=== PATIENT | female | born 1995 | race Caucasian/White ===

== ENCOUNTER 2020-03-20 11:14 | Outpatient (CLI) | payer OTHER ==
[2020-03-20 12:54] VITALS: BP 96/68; PULSE 87; RESP 16; TEMP 96.8
--- NOTE | 2020-03-25 06:21 | P.MSEPDOC ---
Presenting Problems - Arrival Data Date of Arrival on Unit: 03/20/20 Time of Arrival on Unit: 11:14 Mode of Transport: Ambulatory - Complaint OB-Reason for Admission/Chief Complaint: Possible Onset of Labor Medical History - Information : 2 Para: 1 Term: 1 : 0 Abortions: Spontaneous or Elective: 0 Number of Living Children: 1 - Gestational Age Gestational Age by ROSETTA (wks/days): 39 Weeks and 1 Days Review of Systems - Review of Systems Constitutional: No problems Breast: No problems ENT: No problems Cardiovascular: No problems Respiratory: No problems Gastrointestinal: No problems Genitourinary: No problems Musculoskeletal: No problems Neurological: No problems Skin: No problems Vital Signs - Temperature Temperature: 96.8 F Temperature Source: Tympanic - Pulse Right Brachial Pulse Rate: 87 Pulse Assessment Method: Automatic Cuff - Respirations Respiratory Rate: 16 Oxygen Delivery Method: Room Air - Blood Pressure Right Arm Blood Pressure: 96/68 Blood Pressure Mean: 77 Blood Pressure Source: Automatic Cuff Medical Screen Scoring (Pre) - Cervical Exam Dilation: 1-3 cm = 1 Effacement: More than 50% = 2 Membranes: Intact - Uterine Contractions Frequency: > or = 36 weeks =2 Duration: > 40 seconds = 2 Intensity: N/A - Maternal Vital Signs Maternal Temperature: N/A Maternal Blood Pressure: N/A Signs of Preeclampsia: N/A Maternal Respirations: N/A - Maternal Trauma Maternal Trauma: N/A - Assessment - Baby A Baseline FHR: 145 Heart Rate - NICHD Category: Category I (Normal) = 0 NST: Reactive Position: N/A Station: N/A - Total Score - Baby A Total Score - Baby A: 7 - Total Score - Baby B Total Score - Baby B: 7 - Total Score - Baby C Total Score - Baby C: 7 - Level of Risk - Baby A Level of Risk - Baby A: Medium (6-9) - Level of Risk - Baby B Level of Risk - Baby B: Medium (6-9) - Level of Risk - Baby C Level of Risk - Baby C: Medium (6-9) Physician Notification (Pre) - Physician Notified Physician Notified Date: 03/20/20 Physician Notified Time: 12:40 New Order Received: Yes - Notification Comment Comment: to wait another hour in triage and recheck cervix Medical Screen Scoring (Post) - Cervical Exam Dilation: 1-3 cm = 1 Effacement: More than 50% = 2 Membranes: Intact - Uterine Contractions Frequency: > or = 36 weeks =2 Duration: > 40 seconds = 2 Intensity: N/A - Maternal Vital Signs Maternal Temperature: N/A Maternal Blood Pressure: N/A Signs of Preeclampsia: N/A Maternal Respirations: N/A - Pain Assessment Pain Location and Character: Abdomen Pain Scale Used: Numeric (1 - 10) Pain Intensity: 5 Pain Management Goal: 5 Pain Description: *Acute Pain Radiation Location: back Pain Frequency: Intermittent Pain Duration: 4 Pain Duration Units: Minutes Pain Behavior: Vocalization Pain Aggravating Factors: None Non-Pharmacological Interventions: Position/Reposition, Relaxation Technique - Maternal Trauma Maternal Trauma: N/A - Assessment - Baby A Heart Rate: 135 Heart Rate - NICHD Category: Category I (Normal) = 0 NST: Reactive Position: N/A Station: N/A - Total Score Total Score - Baby A: 7 Total Score - Baby B: 7 Total Score - Baby C: 7 - Post Treatment Level of Risk Post Treatment Level of Risk - Baby A: Medium (6-9) Physician Notification (Post) - Physician Notified Physician Notified Date: 03/20/20 Physician Notified Time: 13:47 Physician/Practitioner Notified:: Dr. Alfred Spoke With: Dr. Alfred - Notification Comment Comment: Per orders from Dr. Tima alvarez to d/c home Disposition - Disposition OB Disposition: Discharge to home Discharge Date: 03/20/20 Discharge Time: 13:47 I agree with the RN Medical Screening Exam: Yes Risk & Benefit of care provided described in d/c instruction: Yes Diagnosis: FALSE LABOR AT OR AFTER 37 COMPLETED WEEKS OF GESTATION
== END 2020-03-20 13:48 | disposition home or self-care (01) ==
LOC: FBPOP 11:14
PROVIDERS: ATTEND Obstetrics & Gynecology
DX: O47.1 False labor at or after 37 completed weeks of gestation (principal); Z3A.39 39 weeks gestation of pregnancy
CPT/HCPCS: 59025; G0463; 99213

== ENCOUNTER 2020-03-20 17:14 | Inpatient (IN) | payer OTHER ==
[2020-03-20] MEDS ORDERED: CARBOPROST TROMETHAMINE 250 MCG/ML 1 ML AMP IM PRN (17:38)
[2020-03-20] MEDS ORDERED: LIDOCAINE 0.5% (PF) 5 MG/ML (50 ML SDV) SQ PRN (17:38)
[2020-03-20] MEDS ORDERED: TERBUTALINE 1 MG/ML VIAL SQ PRN (17:38)
[2020-03-20] MEDS ORDERED: METHYLERGONOVINE 0.2 MG/ML 1 ML AMP IM PRN (17:38)
[2020-03-20] MEDS ORDERED: OXYTOCIN 10 UNIT/ML 1 ML VIAL IM PRN (17:38)
[2020-03-20 18:09] LABS: Glucose,Whole Blood 94 mg/dL (75-99)
[2020-03-20 18:21] LABS: Basophils % (A) 0 %; Eosinophils # (A) 0.1 k/uL (0-0.7); Eosinophils % (A) 1 %; HCT 41.6 % (34.0-46.0); HGB 14.6 gm/dL (11.4-16.0); Lymphocytes # (A) 1.4 k/uL (1.0-4.8); Lymphocytes % (A) 10 %; MCH 33.8 pg (25.0-35.0); MCHC 35.2 g/dL (31.0-37.0); MCV 95.9 fL (80.0-100.0); Mean Platelet Volume 8.5; Monocytes # (A) 0.5 k/uL (0-1.0); Monocytes % (A) 4 %; Neutrophils # (A) 12.8 k/uL (1.3-7.7); Neutrophils % (A) 85 %; Platelet Count 186 k/uL (150-450); RBC 4.34 m/uL (3.80-5.40)
[2020-03-20 18:30] LABS: Amphetamine Screen,Urine Not Detected (NotDetected); Barbiturate Screen,Urine Not Detected (NotDetected); Benzodiazepines Screen,Urine Not Detected (NotDetected); Cocaine Screen,Urine Not Detected (NotDetected); Methadone Screen, Urine Not Detected (NotDetected); Opiate Screen,Urine Not Detected (NotDetected); Oxycodone Screen, Urine Not Detected (NotDetected); Phencyclidine Screen,Urine Not Detected (NotDetected); Tricyclic Antidepressant,Urine Not Detected (NotDetected); Urn Cannabinoid Scrn Not Detected (NotDetected)
[2020-03-20] MEDS ORDERED: ROPIVACAINE 5MG/ML 20ML VIAL ONE (18:32)
[2020-03-20] MEDS ORDERED: SODIUM CHLORIDE 0.9% 100 ML BAG ONE (18:32)
[2020-03-20] MEDS ORDERED: fentaNYL (PF) 50 MCG/ML 5 ML AMP ONE (18:32)
[2020-03-20] MEDS: LACTATED RINGERS 1,000 ML IV SCH ×2 (18:49→19:00)
--- NOTE | 2020-03-20 19:31 | P.HPOB ---
History of Present Illness H&P Date: 03/20/20 Chief Complaint: Contractions This is a 24-year-old female 2 para 1 with an estimated date of confinement of 03/26/2020, estimated gestational age of 39 and one sevenths weeks, who presents to labor and delivery with complaints of contractions that began approximately 4:30 this morning and became more regular and stronger. She denies any rupture of membranes. care has been with Dr. Tomas and has been complicated by gestational diabetes. She has been diet controlled but has not been checking her sugars recently due to unable to get testing strips. She states there has been a problem with her insurance covering them. labs: Hepatitis B surface antigen-negative RPR-nonreactive Rubella-immune Blood type-AB+ Antibody screen-negative Hemoglobin-13.8 Random glucose--96 Obstetrical ultrasound-normal anatomy Pap smear-within normal limits GC/chlamydia/Trichomonas-negative Obstetrical history: . History of 1 vacuum-assisted vaginal delivery at term due to bradycardia. Social history: She is . She works part-time at the [employer]. Review of Systems Constitutional: Denies chills, Denies fever Eyes: denies blurred vision, denies pain Ears, nose, mouth and throat: Denies headache, Denies sore throat Cardiovascular: Denies chest pain, Denies shortness of breath Respiratory: Denies cough Gastrointestinal: Reports abdominal pain (Contractions) Genitourinary: Reports pelvic pain, Reports Musculoskeletal: Denies myalgias Integumentary: Denies pruritus, Denies rash Neurological: Denies numbness, Denies weakness Psychiatric: Reports depression (History of depression) Past Medical History Past Medical History: No Reported History Additional Past Medical History / Comment(s): Gestational diabetes-diet controlled History of Any Multi-Drug Resistant Organisms: None Reported Additional Past Surgical History / Comment(s): ganglion cyst removed left wrist Past Anesthesia/Blood Transfusion Reactions: No Reported Reaction Past Psychological History: Depression (History of ) Smoking Status: Never smoker Past Alcohol Use History: None Reported Past Drug Use History: Marijuana (Quit when she found out she was ) - Past Family History Mother Family Medical History: Cancer, Hypertension Father Family Medical History: Coronary Artery Disease (CAD) Medications and Allergies Home Medications Medication Instructions Recorded Confirmed Type Pnv,Calcium 72/Iron/Folic Acid 1 each PO DAILY 03/20/20 03/20/20 History [ Plus Tablet] Allergies Allergy/AdvReac Type Severity Reaction Status Date / Time No Known Allergies Allergy Verified 03/20/20 17:37 Exam Osteopathic Statement: *. No significant issues noted on an osteopathic structural exam other than those noted in the History and Physical/Consult. Intake and Output 03/20/20 03/20/20 03/20/20 06:59 14:59 22:59 Other: Weight 80.286 kg HEENT: Within normal limits Heart: Regular rate and rhythm Lungs: Clear to auscultation bilaterally Abdomen: Cervix: On admission is 4-1/2 cm/80%/-2 station. Currently is 7-8 cm/90%/-2 station. Membranes are intact. Patient's is uncomfortable with me in performing artificial rupture of membranes and therefore I did not proceed with that. heart tones: Category 1 Contractions: Every 3-5 minutes Extremities: Negative Homans Results Result Diagrams: 03/20/20 18:12 Abnormal Lab Results - Last 24 Hours (Table) 03/20/20 Range/Units 18:12 WBC 15.0 H (3.8-10.6) k/uL Neutrophils # 12.8 H (1.3-7.7) k/uL Assessment and Plan (1) 39 weeks gestation of Current Visit: Yes Status: Acute Code(s): Z3A.39 - 39 WEEKS GESTATION OF SNOMED Code(s): 53738566 Plan: Admission for active labor. Will obtain blood sugars every 2 hours while in labor due to gestational diabetes. Expectant management. Epidural anesthesia. I did have a long discussion with the patient and her regarding radames ficial rupture membranes and the reasons for this. I did explain that if there is meconium it can help us better prepare for staff at the time of delivery. I also explained that this could help her labor move along faster. I advised them that this will not cause a "dry " like her was concerned about. I advised him I do not need to perform artificial rupture membranes at this time however it may be necessary if labor stalls, or they are are heart tone issues that require it.
--- NOTE | 2020-03-20 19:32 | P.MSEPDOC ---
Presenting Problems - Arrival Data Date of Arrival on Unit: 03/20/20 Time of Arrival on Unit: 17:30 Mode of Transport: Ambulatory - Complaint OB-Reason for Admission/Chief Complaint: Possible Onset of Labor Medical History - Information : 2 Para: 1 Term: 1 : 0 Abortions: Spontaneous or Elective: 0 Number of Living Children: 0 - Gestational Age Gestational Age by ROSETTA (wks/days): 39 Weeks and 1 Days - History Complications: GDM Review of Systems - Review of Systems Constitutional: No problems Breast: No problems ENT: No problems Cardiovascular: No problems Respiratory: No problems Gastrointestinal: No problems Genitourinary: No problems Musculoskeletal: No problems Neurological: No problems Skin: No problems Vital Signs - Temperature Temperature: 96.8 F Temperature Source: Tympanic - Pulse Right Brachial Pulse Rate: 105 Pulse Assessment Method: Automatic Cuff - Respirations Respiratory Rate: 16 Oxygen Delivery Method: Room Air - Blood Pressure Right Arm Blood Pressure: 122/71 Blood Pressure Mean: 88 Blood Pressure Source: Automatic Cuff Medical Screen Scoring (Pre) - Cervical Exam Dilation: 4-7 cm = 2 Effacement: More than 50% = 2 Membranes: Intact - Uterine Contractions Frequency: > or = 36 weeks =2 Duration: > 40 seconds = 2 Intensity: Contraction palpated strong = 1 - Maternal Vital Signs Maternal Temperature: N/A Maternal Blood Pressure: N/A Signs of Preeclampsia: N/A Maternal Respirations: N/A - Maternal Trauma Maternal Trauma: N/A - Assessment - Baby A Baseline FHR: 135 Heart Rate - NICHD Category: Category I (Normal) = 0 NST: Reactive Position: N/A Station: N/A - Total Score - Baby A Total Score - Baby A: 9 - Total Score - Baby B Total Score - Baby B: 9 - Total Score - Baby C Total Score - Baby C: 9 - Level of Risk - Baby A Level of Risk - Baby A: Medium (6-9) - Level of Risk - Baby B Level of Risk - Baby B: Medium (6-9) - Level of Risk - Baby C Level of Risk - Baby C: Medium (6-9) Physician Notification (Pre) - Physician Notified Physician Notified Date: 03/20/20 Physician Notified Time: 17:40 New Order Received: Yes - Notification Comment Comment: admit for labor Disposition - Disposition OB Disposition: Admit I agree with the RN Medical Screening Exam: Yes Risk & Benefit of care provided described in d/c instruction: Yes Diagnosis: FALSE LABOR AT OR AFTER 37 COMPLETED WEEKS OF GESTATION
[2020-03-20 19:59] LABS: Glucose,Whole Blood 98 mg/dL (75-99)
--- NOTE | 2020-03-20 21:36 | P.PROBDLV ---
Vaginal Delivery Note - . Vaginal Delivery Note: The patient progressed to complete dilation spontaneously. When the nurse checked her at approximate 9 cm, she spontaneously ruptured with clear fluid noted. Shortly after rupture membranes, she became complete and began pushing. Infant's head came to a crown. With one further push, the 's head delivered across the perineum followed by the anterior shoulder and the remainder the body. was placed on mother's abdomen. Nose and mouth were bulb suctioned. Once the cord stopped pulsating, the cord was clamped and cut. was then taken to warmer for evaluation. A viable female infant was noted with scores of 8 at 1 minute and 9 at 5 minutes and weight of 6 lbs. 13 oz. Placenta delivered shortly thereafter, intact, with a three- vessel cord. Uterus contracted fairly well after oxytocin was given and uterine massage was carried out. Inspection of the perineum revealed a small second- degree perineal laceration. This area was anesthetized with 1% lidocaine and then sutured with 3-0 Vicryl suture in the usual multilayer fashion. A gloved hand was used to inspect the intrauterine cavity and a small amount of membranes was removed. No further tissue or membrane was noted with a second swipe of the gloved hand. Uterus again is contracted well and minimal bleeding is noted. Estimated blood loss is approximately 150 mL's. Both mother and infant are in stable condition. Mom is doing skin to skin at this time.
[2020-03-20] MEDS ORDERED: OXYTOCIN 20 UNITS/1000 ML NS 1,000 ML IV SCH (21:56)
[2020-03-20] MEDS ORDERED: SIMETHICONE 80 MG CHEWABLE PO PRN (21:56)
[2020-03-20] MEDS ORDERED: BENZOCAINE/MENTHOL SPRAY 1 GM/SPRAY AEROSOL TOPICAL PRN (21:56)
[2020-03-20] MEDS ORDERED: diphenhydrAMINE 50 MG CAP PO PRN (21:56)
[2020-03-20] MEDS ORDERED: ACETAMINOPHEN TAB 325 MG TAB PO PRN (21:56)
[2020-03-20] MEDS ORDERED: diphenhydrAMINE 50 MG/ML 1 ML VIAL IVP PRN ×2 (21:56)
[2020-03-20] MEDS ORDERED: diphenhydrAMINE 25 MG CAP PO PRN (21:56)
[2020-03-20] MEDS ORDERED: HYDROCORTISONE 2.5% RECTAL CREAM 30 GM TUBE RECTAL PRN (21:56)
[2020-03-20] MEDS ORDERED: LANOLIN CREAM 5 GM TUBE TOPICAL PRN (21:56)
[2020-03-20] MEDS ORDERED: ZOLPIDEM 5 MG TAB PO PRN (21:56)
[2020-03-21 01:12] LABS: Hemoglobin A1C 4.7 % (4.0-6.0)
[2020-03-21] MEDS: IBUPROFEN 600 MG TAB PO PRN ×2 (07:50→18:06)
[2020-03-21] MEDS ORDERED: SENNOSIDES-DOCUSATE SODIUM 1 EACH TAB PO SCH (08:00)
[2020-03-21 08:07] LABS: Basophils % (A) 0 %; Eosinophils # (A) 0.1 k/uL (0-0.7); Eosinophils % (A) 1 %; HCT 39.6 % (34.0-46.0); HGB 13.8 gm/dL (11.4-16.0); Lymphocytes % (A) 14 %; MCH 33.1 pg (25.0-35.0); MCHC 34.8 g/dL (31.0-37.0); MCV 95.3 fL (80.0-100.0); Mean Platelet Volume 8.4; Monocytes # (A) 0.6 k/uL (0-1.0); Monocytes % (A) 4 %; Neutrophils # (A) 12.2 k/uL (1.3-7.7); Neutrophils % (A) 81 %; Platelet Count 161 k/uL (150-450); RBC 4.15 m/uL (3.80-5.40); RDW 12.9 % (11.5-15.5); WBC 15.2 k/uL (3.8-10.6)
[2020-03-21] MEDS ORDERED: PRENATAL VIT-IRON-FOLIC ACID 1 EACH CAP PO SCH (09:00)
--- NOTE | 2020-03-21 16:18 | P.DS ---
Providers Date of admission: 03/20/20 17:32 Expected date of discharge: 03/21/20 Attending physician: Ronny Tomas Primary care physician: Stated None Hospital Course: Shila is doing very well post day 1. She is ambulating, voiding and tolerating her diet. She voices no complaints. She is requesting discharge home today. Prescriptions for Motrin and a breast pump are provided. Discharge instructions were thoroughly reviewed and all questions were answered for her prior to her discharge. On physical exam her vital signs are stable and afebrile. Heart regular, lungs clear, extremities without pain. Abdomen soft uterus is firm and lochia is reported to be light. Assessment day 1. Plan discharged home follow up with me in 6 weeks. Plan - Discharge Summary New Discharge Prescriptions: New Ibuprofen [Motrin] 600 mg PO Q6HR PRN #30 tab PRN Reason: Pain No Action Pnv,Calcium 72/Iron/Folic Acid [ Plus Tablet] 1 each PO DAILY Discharge Medication List Pnv,Calcium 72/Iron/Folic Acid [ Plus Tablet] 1 each PO DAILY 03/20/20 [History] Ibuprofen [Motrin] 600 mg PO Q6HR PRN #30 tab 03/21/20 [Rx] Follow up Appointment(s)/Referral(s): Ronny Tomas DO [Doctor of Osteopathic Medicine] - 1 Week Activity/Diet/Wound Care/Special Instructions: No heavy lifting, limit stairs and driving, and pelvic rest. If any high temperatures, heavy bleeding, or severe pain call my office Discharge Disposition: HOME SELF-CARE
[2020-03-21 19:35] VITALS: BP 116/62; PULSE 86; RESP 16; TEMP 98.1
== END 2020-03-21 22:05 | disposition home or self-care (01) | DRG 807 ==
LOC: FBPOP 17:14 → 4FBP 17:32
PROVIDERS: ADMIT Obstetrics & Gynecology; ATTEND Obstetrics & Gynecology
PROC: 10E0XZZ Delivery of Products of Conception, External Approach (ICD-10-PCS; principal; 2020-03-20)
PROC: 0KQM0ZZ Repair Perineum Muscle, Open Approach (ICD-10-PCS; 2020-03-20)
PROC: 3E0R3BZ Introduction of Anesthetic Agent into Spinal Canal, Percutaneous Approach (ICD-10-PCS; 2020-03-20)
DX: O24.420 Gestational diabetes mellitus in childbirth, diet controlled (principal); Z37.0 Single live birth; O70.1 Second degree perineal laceration during delivery; Z3A.39 39 weeks gestation of pregnancy; Z79.899 Other long term (current) drug therapy; Z86.59 Personal history of other mental and behavioral disorders; Z98.890 Other specified postprocedural states; Z82.49 Family history of ischemic heart disease and other diseases of the circulatory system; Z80.9 Family history of malignant neoplasm, unspecified
CPT/HCPCS: 80306; 83036; 85025; 86850; 86900; 86901; 88307; 99213

== ENCOUNTER → 2023-07-11 | Outpatient (CLI) | payer OTHER | END | disposition home or self-care (01) | LOC: LABWHC1 14:50 | PROVIDERS: ATTEND Physician Assistant | DX: Z52.3 Bone marrow donor (principal) | CPT/HCPCS: 36415; 84702 ==

== ENCOUNTER → 2023-08-22 | Outpatient (CLI) | payer SELFPAY ==
[2023-08-22 15:42] LABS: Basophils # (A) 0.1 k/uL (0-0.2); Basophils % (A) 1 %; Eosinophils # (A) 0.1 k/uL (0-0.7); Eosinophils % (A) 1 %; HCT 42.7 % (34.0-46.0); HGB 14.1 gm/dL (11.4-16.0); Lymphocytes # (A) 2.1 k/uL (1.0-4.8); Lymphocytes % (A) 20 %; MCH 30.8 pg (25.0-35.0); MCV 93.3 fL (80.0-100.0); Mean Platelet Volume 7.2; Monocytes # (A) 0.3 k/uL (0-1.0); Monocytes % (A) 3 %; Neutrophils # (A) 8.2 k/uL (1.3-7.7); Neutrophils % (A) 76 %; Platelet Count 255 k/uL (150-450); RBC 4.58 m/uL (3.80-5.40); RDW 12.4 % (11.5-15.5); WBC 10.9 k/uL (3.8-10.6)
== END | disposition home or self-care (01) ==
LOC: LABWHC1 15:21
PROVIDERS: ATTEND Pathology Anatomic Pathology & Clinical Pathology
DX: Z52.3 Bone marrow donor (principal)
CPT/HCPCS: 36415; 84702; 85025

== ENCOUNTER → 2023-09-04 | Outpatient (CLI) | payer OTHER | END | disposition home or self-care (01) | LOC: LABWHC1 15:50 | PROVIDERS: ATTEND Physician Assistant | DX: Z52.3 Bone marrow donor (principal) | CPT/HCPCS: 36415; 84702 ==